=== PATIENT | female | born 1975 | race Two or more races ===

== ENCOUNTER 2019-02-10 11:37 | Inpatient (IN) | payer OTHER ==
[~2019-02-10] VITALS: Ht 167.6 cm; Wt 59.4 kg
[2019-02-10] MEDS ORDERED: METFORMIN HCL500 M2 PO (12:15)
[2019-02-10] MEDS ORDERED: COZAAR50 MG PO (12:16)
[2019-03-07] MEDS ORDERED: CARAFATE1 GM PO (15:39)
[2019-03-07] MEDS ORDERED: INTESTINEX680 M1 PO (15:39)
[2019-03-07] MEDS ORDERED: PANTOPRAZOLE SO40 MG PO (15:39)
[2019-03-07] MEDS ORDERED: METOCLOPRAMIDE10 MG PO (15:39)
[2019-03-07] MEDS ORDERED: LOSARTAN POTASS50 MG PO (15:39)
[2019-03-07] MEDS ORDERED: POLY119PG PO (15:39)
== END 2019-03-07 17:30 | disposition home or self-care (01) | DRG 392 ==
LOC: ER 11:37 → SURG 18:39 → MEDJ 18:39 → MEDI 23:01 → SURG 23:50
PROVIDERS: Surgery; ADMIT Internal Medicine
PROC: 3E0436Z Introduction of Nutritional Substance into Central Vein, Percutaneous Approach (ICD-10-PCS; 2019-02-13)
PROC: 02HV33Z Insertion of Infusion Device into Superior Vena Cava, Percutaneous Approach (ICD-10-PCS; 2019-02-13)
PROC: 8E0ZXY6 Isolation (ICD-10-PCS; 2019-02-13)
PROC: BW21Y0Z Computerized Tomography (CT Scan) of Abdomen and Pelvis using Other Contrast, Unenhanced and Enhanced (ICD-10-PCS; 2019-02-16)
PROC: 0DCQ7ZZ Extirpation of Matter from Anus, Via Natural or Artificial Opening (ICD-10-PCS; principal; 2019-02-18 15:00)
PROC: B030Y0Z Magnetic Resonance Imaging (MRI) of Brain using Other Contrast, Unenhanced and Enhanced (ICD-10-PCS; 2019-02-23)
PROC: 0T9B70Z Drainage of Bladder with Drainage Device, Via Natural or Artificial Opening (ICD-10-PCS; 2019-02-25)
PROC: CD171ZZ Planar Nuclear Medicine Imaging of Gastrointestinal Tract using Technetium 99m (Tc-99m) (ICD-10-PCS; 2019-03-02)
DX: K52.89 Other specified noninfective gastroenteritis and colitis (principal); E44.0 Moderate protein-calorie malnutrition; F32.0 Major depressive disorder, single episode, mild; E87.1 Hypo-osmolality and hyponatremia; L29.0 Pruritus ani; K62.89 Other specified diseases of anus and rectum; K56.41 Fecal impaction; K29.00 Acute gastritis without bleeding; E86.0 Dehydration; N39.8 Other specified disorders of urinary system; E87.6 Hypokalemia; B96.7 Clostridium perfringens [C. perfringens] as the cause of diseases classified elsewhere; E10.65 Type 1 diabetes mellitus with hyperglycemia; I10 Essential (primary) hypertension; T18.5XXA Foreign body in anus and rectum, initial encounter; Z79.4 Long term (current) use of insulin
CPT/HCPCS: 70552

== ENCOUNTER 2019-03-14 09:27 | Emergency (ER) | payer OTHER ==
[~2019-03-14] VITALS: Ht 167.6 cm; Wt 64.0 kg
[~2019-03-14 09:27] MED LIST: CARAFATE1 GM PO; COZAAR50 MG PO; INTESTINEX680 M1 PO; LOSARTAN POTASS50 MG PO; METFORMIN HCL500 M2 PO; METOCLOPRAMIDE10 MG PO; PANTOPRAZOLE SO40 MG PO; POLY119PG PO
[2019-03-14] MEDS ORDERED: APIDRA SOL100 UNIT/1 (09:47)
== END 2019-03-14 16:44 | disposition home or self-care (01) ==
LOC: ER 09:27
DX: K52.9 Noninfective gastroenteritis and colitis, unspecified (principal); E87.6 Hypokalemia; E10.43 Type 1 diabetes mellitus with diabetic autonomic (poly)neuropathy; K31.84 Gastroparesis

== ENCOUNTER 2019-12-18 19:20 | Emergency (ER) | payer OTHER ==
[~2019-12-18] VITALS: Ht 167.6 cm; Wt 55.8 kg
[~2019-12-18 19:20] MED LIST changes: +APIDRA SOL100 UNIT/1
[2019-12-18] MEDS ORDERED: ZOFRAN (20:49)
[2019-12-18] MEDS ORDERED: REGLAN (20:50)
[2019-12-18] MEDS ORDERED: PROTONIX (20:50)
[2019-12-19] MEDS ORDERED: PEPCID40 MG PO (03:09)
[2019-12-20] MEDS ORDERED: LANTUS SOL100 UNIT/1 (09:24)
== END 2019-12-19 03:17 | disposition home or self-care (01) ==
LOC: ER 19:20
DX: K29.70 Gastritis, unspecified, without bleeding (principal)

== ENCOUNTER 2019-12-20 09:12 | Inpatient (IN) | payer OTHER ==
[~2019-12-20] VITALS: Ht 167.6 cm; Wt 52.6 kg
[~2019-12-20 09:12] MED LIST changes: +PEPCID40 MG PO; +PROTONIX; +REGLAN; +ZOFRAN
[2019-12-20] MEDS ORDERED: LANTUS SOL100 UNIT/1 (09:24)
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
== END 2019-12-25 13:05 | disposition home or self-care (01) | DRG 638 ==
LOC: ER 09:12 → MEDJ 12:53 → SURH 16:10
PROVIDERS: ADMIT Internal Medicine; ATTEND Internal Medicine
DX: E10.65 Type 1 diabetes mellitus with hyperglycemia (principal); E87.1 Hypo-osmolality and hyponatremia; E86.0 Dehydration; E87.6 Hypokalemia; E10.43 Type 1 diabetes mellitus with diabetic autonomic (poly)neuropathy; K31.84 Gastroparesis; K29.70 Gastritis, unspecified, without bleeding; I10 Essential (primary) hypertension; L29.0 Pruritus ani; F32.9 Major depressive disorder, single episode, unspecified

== ENCOUNTER 2020-01-14 23:08 | Inpatient (IN) | payer OTHER ==
[~2020-01-14] VITALS: Ht 167.6 cm; Wt 54.4 kg
[~2020-01-14 23:08] MED LIST changes: +LANTUS SOL100 UNIT/1
[2020-01-15] MEDS ORDERED: PEPCID AC20 MG PO (05:24)
[2020-01-15] MEDS ORDERED: ZOFRAN8 MG PO (05:24)
== END 2020-01-22 11:45 | disposition home or self-care (01) | DRG 74 ==
LOC: ER 23:08 → MEDI 01-15 11:30 → SURH 01-15 11:30
PROVIDERS: ADMIT Internal Medicine; ATTEND Internal Medicine
DX: E11.43 Type 2 diabetes mellitus with diabetic autonomic (poly)neuropathy (principal); Z20.828 Contact with and (suspected) exposure to other viral communicable diseases; E86.0 Dehydration; E11.65 Type 2 diabetes mellitus with hyperglycemia; E87.6 Hypokalemia; K52.89 Other specified noninfective gastroenteritis and colitis

== ENCOUNTER 2020-02-08 11:30 | Emergency (ER) | payer OTHER ==
[~2020-02-08] VITALS: Ht 167.6 cm; Wt 54.4 kg
[~2020-02-08 11:30] MED LIST changes: +PEPCID AC20 MG PO; +ZOFRAN8 MG PO
== END 2020-02-08 18:32 | disposition home or self-care (01) ==
LOC: ER 11:30
DX: K52.89 Other specified noninfective gastroenteritis and colitis (principal); E87.6 Hypokalemia; E11.43 Type 2 diabetes mellitus with diabetic autonomic (poly)neuropathy; Z03.818 Encounter for observation for suspected exposure to other biological agents ruled out; R10.13 Epigastric pain

== ENCOUNTER 2020-02-10 10:07 | Inpatient (IN) | payer OTHER ==
[~2020-02-10] VITALS: Ht 167.6 cm; Wt 54.4 kg
[2020-02-10] MEDS ORDERED: LISINOPRIL10 MG PO (10:18)
== END 2020-02-17 10:12 | disposition home or self-care (01) | DRG 74 ==
LOC: ER 10:07 → SEC-K 18:49 → SURH 18:49
PROVIDERS: ADMIT Internal Medicine; ATTEND Internal Medicine
PROC: BW21Y0Z Computerized Tomography (CT Scan) of Abdomen and Pelvis using Other Contrast, Unenhanced and Enhanced (ICD-10-PCS; principal; 2020-02-10)
DX: E10.43 Type 1 diabetes mellitus with diabetic autonomic (poly)neuropathy (principal); A09 Infectious gastroenteritis and colitis, unspecified; E87.1 Hypo-osmolality and hyponatremia; K31.84 Gastroparesis; E10.65 Type 1 diabetes mellitus with hyperglycemia; E87.6 Hypokalemia; E86.0 Dehydration; Z79.4 Long term (current) use of insulin; Z03.818 Encounter for observation for suspected exposure to other biological agents ruled out

== ENCOUNTER 2020-03-04 07:39 | Emergency (ER) | payer OTHER ==
[~2020-03-04] VITALS: Ht 167.6 cm; Wt 54.4 kg
[~2020-03-04 07:39] MED LIST changes: +LISINOPRIL10 MG PO
== END 2020-03-04 17:50 | disposition home or self-care (01) ==
LOC: ER 07:39
DX: E11.43 Type 2 diabetes mellitus with diabetic autonomic (poly)neuropathy (principal); K31.84 Gastroparesis; R11.2 Nausea with vomiting, unspecified; Z03.818 Encounter for observation for suspected exposure to other biological agents ruled out; Z79.4 Long term (current) use of insulin

== ENCOUNTER 2020-03-05 13:42 | Inpatient (IN) | payer OTHER ==
[~2020-03-05] VITALS: Ht 167.6 cm; Wt 54.4 kg
== END 2020-03-16 11:23 | disposition home or self-care (01) | DRG 74 ==
LOC: ER 13:42 → SURH 18:47
PROVIDERS: ADMIT Internal Medicine; ATTEND Internal Medicine
PROC: BW21YZZ Computerized Tomography (CT Scan) of Abdomen and Pelvis using Other Contrast (ICD-10-PCS; principal; 2020-03-05)
DX: E10.43 Type 1 diabetes mellitus with diabetic autonomic (poly)neuropathy (principal); E87.1 Hypo-osmolality and hyponatremia; E86.0 Dehydration; E10.65 Type 1 diabetes mellitus with hyperglycemia; E87.6 Hypokalemia; K29.60 Other gastritis without bleeding; K52.89 Other specified noninfective gastroenteritis and colitis; K31.84 Gastroparesis; L29.0 Pruritus ani; R11.2 Nausea with vomiting, unspecified; Z79.899 Other long term (current) drug therapy; F32.9 Major depressive disorder, single episode, unspecified; Z20.828 Contact with and (suspected) exposure to other viral communicable diseases; I10 Essential (primary) hypertension

== ENCOUNTER 2020-04-09 08:44 | Inpatient (IN) | payer OTHER ==
[~2020-04-09] VITALS: Ht 167.6 cm; Wt 56.7 kg
[2020-04-09] MEDS ORDERED: REGLAN5 MG/5 ML PO (09:01)
[2020-04-09] MEDS ORDERED: MIRTAZAPINE15 M1 PO (09:03)
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
== END 2020-04-13 11:20 | disposition home or self-care (01) | DRG 74 ==
LOC: ER 08:44 → MEDJ 09:39
PROVIDERS: ADMIT Internal Medicine; ATTEND Internal Medicine
DX: E10.43 Type 1 diabetes mellitus with diabetic autonomic (poly)neuropathy (principal); E87.1 Hypo-osmolality and hyponatremia; E10.65 Type 1 diabetes mellitus with hyperglycemia; E87.6 Hypokalemia; E86.0 Dehydration; K31.84 Gastroparesis; K63.89 Other specified diseases of intestine; K52.89 Other specified noninfective gastroenteritis and colitis; K29.60 Other gastritis without bleeding; I10 Essential (primary) hypertension; R11.2 Nausea with vomiting, unspecified; L29.0 Pruritus ani; F32.9 Major depressive disorder, single episode, unspecified; Z20.828 Contact with and (suspected) exposure to other viral communicable diseases; Z79.4 Long term (current) use of insulin

== ENCOUNTER 2020-05-10 12:50 | Inpatient (IN) | payer OTHER ==
[~2020-05-10] VITALS: Ht 167.6 cm; Wt 54.4 kg
[~2020-05-10 12:50] MED LIST changes: +MIRTAZAPINE15 M1 PO; +REGLAN5 MG/5 ML PO
[2020-05-10] MEDS ORDERED: RESTORIL15 M1 PO (13:17)
[2020-05-10] MEDS ORDERED: PROZAC10 MG PO (13:17)
--- NOTE | 2020-05-10 13:18 | NUR ---
SE RECIBE PTE ALERTA Y ORIENTADA X 3 QUIEN REFIERE VOMITOS INCONTROLABLES LOS CUALES COMENZARON EL LESA. SE MIDEN SV Y SE UBICA PTE EN SHARON PARA EVALUACION MEDICA.
--- NOTE | 2020-05-10 14:57 | NUR ---
PACIENTE ALERTA Y ORIENTADA EN TIEMPO LUGAR Y PERSONA. RN SHILO ORIENTA A PACIENTE SOBRE TRATAMIENDO ORDENADO POR DR. GARRIDO LA MISMA VERBALIZA ENTENDER. RN ADMINISTRA MEDICAMENTOS, COLECTA MUESTRAS ORDENADAS, Y COLOCA VENOPUNCION PATENTE LIVE DE ERITEMA Y EDEMA.
== END 2020-05-17 11:42 | disposition home or self-care (01) | DRG 74 ==
LOC: ER 12:50 → SEC-K 18:47 → SURH 18:47
PROVIDERS: ADMIT Internal Medicine; ATTEND Internal Medicine
PROC: 4A033R1 Measurement of Arterial Saturation, Peripheral, Percutaneous Approach (ICD-10-PCS; principal; 2020-05-10)
PROC: BW21Y0Z Computerized Tomography (CT Scan) of Abdomen and Pelvis using Other Contrast, Unenhanced and Enhanced (ICD-10-PCS; 2020-05-10)
DX: E11.43 Type 2 diabetes mellitus with diabetic autonomic (poly)neuropathy (principal); E86.0 Dehydration; Z20.828 Contact with and (suspected) exposure to other viral communicable diseases; K31.84 Gastroparesis; E11.65 Type 2 diabetes mellitus with hyperglycemia; Z79.4 Long term (current) use of insulin; E87.6 Hypokalemia

== ENCOUNTER 2020-05-28 22:56 | Inpatient (IN) | payer OTHER ==
[~2020-05-28] VITALS: Ht 167.6 cm; Wt 54.4 kg
[~2020-05-28 22:56] MED LIST changes: +PROZAC10 MG PO; +RESTORIL15 M1 PO
== END 2020-06-06 20:39 | disposition home or self-care (01) | DRG 637 ==
LOC: ER 22:56 → MEDJ 05-29 08:04
PROVIDERS: ADMIT Internal Medicine; ATTEND Internal Medicine
PROC: BW24ZZZ Computerized Tomography (CT Scan) of Chest and Abdomen (ICD-10-PCS; principal; 2020-05-29)
PROC: 4A12X4Z Monitoring of Cardiac Electrical Activity, External Approach (ICD-10-PCS; 2020-05-29)
PROC: 8E0ZXY6 Isolation (ICD-10-PCS; 2020-05-29)
DX: E10.10 Type 1 diabetes mellitus with ketoacidosis without coma (principal); U07.1 COVID-19; E10.43 Type 1 diabetes mellitus with diabetic autonomic (poly)neuropathy; K31.84 Gastroparesis; E86.0 Dehydration; I10 Essential (primary) hypertension; Z79.4 Long term (current) use of insulin; Z20.828 Contact with and (suspected) exposure to other viral communicable diseases; F32.9 Major depressive disorder, single episode, unspecified

== ENCOUNTER 2020-06-13 22:10 | Inpatient (IN) | payer OTHER ==
[~2020-06-13] VITALS: Ht 167.6 cm; Wt 5.0 kg
--- NOTE | 2020-06-13 22:23 | NUR ---
PTE SE RECIBE POR VOMITTING Y NAUSEAS REFIERE PTE.
== END 2020-06-20 12:53 | disposition home or self-care (01) | DRG 74 ==
LOC: ER 22:10 → SURH 23:35
PROVIDERS: ADMIT Internal Medicine; ATTEND Internal Medicine
DX: E10.43 Type 1 diabetes mellitus with diabetic autonomic (poly)neuropathy (principal); F33.0 Major depressive disorder, recurrent, mild; K31.84 Gastroparesis; I10 Essential (primary) hypertension; E86.0 Dehydration; E10.65 Type 1 diabetes mellitus with hyperglycemia; Z79.4 Long term (current) use of insulin

== ENCOUNTER 2020-08-12 20:21 | Inpatient (IN) | payer OTHER ==
[~2020-08-12] VITALS: Ht 172.7 cm; Wt 59.0 kg
--- NOTE | 2020-08-12 20:55 | NUR ---
SE RECIBE PACIENTE ALERTA, ORIENTADA X 3 ESFERAS ACOMPANADA DE ESPOSO EL CUAL REFIERE VIENE POR VOMITOS MAS DE 10 EPISODIOS EN EL GRETEL DE HOY SE ESTIMAN S/V SE REPORTAN SE UBICA EN AREA DE OBSERVACION EL PASO # 09 CON BARRANDAS ELEVADAS A NIVEL MAS BAJO.
--- NOTE | 2020-08-12 21:53 | NUR ---
MR. BROOKS EDUCA A PTE SOBRE TX MEDICO ESTA REFIERE ENTENDER. SE SUSAN MUESTRA DE LABORATORIO UTILIZANDO MEDIDAS ASEPTICAS.SE COLOCA H/L EL CUAL S EENCUENTRA PATENTE Y LIVE DE EDEMA. SE ADMINISTRAN MEDICAMENTOS A PTE LOS CUALES TOLERA.
--- NOTE | 2020-08-12 23:15 | NUR ---
SE RECIBE PTE ALERTA Y ORIENTADA X 3 ESFERAS EN CAMA CON BARANDAS ELEVADAS POR SEGURIDAD. PRESENTANDO BUEN PATRON RESPIRATORIO. RECIBIENDO IV'S 0.9NSS BAJANDO 125 ML/HR POR VENOPUNCION EN BRAZO DERECHO AREA LIVE DE EDEMA Y ERITEMA. PENDIENTE CONSULTA CON . SE MANTIENE EN OBSERVACION.
--- NOTE | 2020-08-13 07:12 | NUR ---
SE RECIBE PACIENTE FEMENINA ALERTA Y ORIENTADA CON BARANDAS ELEVADAS. AREA DE VENOPUNCION EN ANTEBRAZO DERECHO Y PATENTE, SE OBSERVA AREA LIVE DE EDEMA Y ENROJECIMIENTO. PENDIENTE DIETA LIQUIDA, CONSULTA CON DR. BEE Y BMP + CBC A LAS DE LA MANANA. SE LE NOREEN EN TODO MOMENTO SEGURIDAD Y PRIVACIDAD. SE MANTIENE EN OBSERVACION.
--- NOTE | 2020-08-13 15:00 | NUR ---
PACIENTE FEMINA ALERTA ORIENTADA DEVIDAMENTE IDENTIFICADA. SE RE ORIENTA SOBRE EL TRATAMIENTO ORDENADO LA MISMA REFIERE ENTENDER. AREA DE VENOPUNCION PATENTE LIVE DE EDEMA Y ERITEMA. SE NOREEN PRIVACIDAD SEGURIDAD Y SE ASISTE A MARGARET NECESIDADES EN TODO MOMENTO.
== END 2020-08-18 13:40 | disposition home or self-care (01) | DRG 74 ==
LOC: ER 20:21 → SEC-K 08-13 20:07 → MEDI 08-13 20:07
PROVIDERS: ADMIT Internal Medicine; ATTEND Internal Medicine
DX: E10.43 Type 1 diabetes mellitus with diabetic autonomic (poly)neuropathy (principal); N39.0 Urinary tract infection, site not specified; K31.84 Gastroparesis; E86.0 Dehydration; E87.6 Hypokalemia; I10 Essential (primary) hypertension; F32.9 Major depressive disorder, single episode, unspecified; Z79.4 Long term (current) use of insulin; Z20.822 Contact with and (suspected) exposure to COVID-19; E55.9 Vitamin D deficiency, unspecified

== ENCOUNTER 2021-06-05 15:25 | Emergency (ER) | payer OTHER ==
[~2021-06-05] VITALS: Ht 167.6 cm; Wt 73.5 kg
[2021-06-05] MEDS ORDERED: ZITHROMAX TRI-500 MG PO (23:53)
== END 2021-06-06 00:26 | disposition home or self-care (01) ==
LOC: ER 15:25
DX: K31.84 Gastroparesis (principal)